=== PATIENT | female | born 1955 | race Caucasian/White ===

== ENCOUNTER 2021-02-06 22:41 | Emergency (ER) | payer OTHER ==
[~2021-02-06] VITALS: Ht 160 cm; Wt 64.4 kg
[2021-02-06 22:41] VITALS: BP_SYST 128
[2021-02-06] MEDS ORDERED: ONDANSETRON 4 MG ODT TAB PO ONE (22:45)
[2021-02-06] MEDS ORDERED: fentaNYL CITRATE/PF 100 MCG/2 ML AMP IM ONE (22:45)
[2021-02-06] MEDS ORDERED: HYDROcodone/ACETAMIN 10-325 MG TAB ONE (23:55)
[2021-02-07] MEDS ORDERED: HYDROcodone/ACETAMIN 10-325 MG TAB PO ONE
--- NOTE | 2021-02-07 00:11 | NUR ---
PARAMEDICS STABALIZED ANKLE WITH SPLINT. RIGHT ANKLE ELEVATED ON PILLOW TO HELP WITH PAIN CONTROL
--- NOTE | 2021-02-07 00:11 | NUR ---
PT BIB AMBULANCE AFTER ROLLING HER RIGHT ANKLE AT HOME. UNABLE TO STAND ON FOOT OR PUT ANY PRESSURE DUE TO INSENSE PAIN. PT ABLE TO MOVE TOES, PALPABLE PEDAL PULSE. NO DEFORMITY NOTED. NOTICABLE SWELLING TO ANKLE. PT PLACED ON GURNEY, V/S TAKEN. BED IN LOWEST POSITION, LOCKED, AND SIDERAIL UP FOR SAFETY
[2021-02-07] MEDS ORDERED: IBUP-1969 PO (02:21)
--- NOTE | 2021-02-07 02:52 | NUR ---
Lilo jain in EDM - 02/07/21 at 0332 by [email or web address] SPLINT PLACED TO RIGHT ANKLE BY . PT STILL HAVING PAIN, 10/15, MD GEORGE AWARE NO NEW ORDERS
[2021-02-07] MEDS ORDERED: MORPHINE 4 MG INJ. 4 MG/ML VIAL ONE (03:29)
[2021-02-07] MEDS ORDERED: MORPHINE 4 MG INJ. 4 MG/ML VIAL IM ONE (03:30)
--- NOTE | 2021-02-07 03:32 | NUR ---
STILL WAITING TO HAVE SPLINT PLACED TO RIGHT ANKLE. MD ORDERED MORE PAIN MEDS.
--- NOTE | 2021-02-07 04:38 | NUR ---
SPLINT PLACED BY MD TO RIGHT ANKLE, CRUTCH TRAINING FOR PATIRNT, RETURN DEMONSTRATION GIVEN, ALL QUESTIONS ANSWERED
--- NOTE | 2021-02-07 04:39 | NUR ---
Patient given written and verbal discharge instructions and verbalizes understanding. ER MD discussed with patient the results and treatment provided. Patient in stable condition. ID arm band removed. Rx of MOTIRIN given. Patient educated on pain management and to follow up with PMD. Pain Scale 5. Opportunity for questions provided and answered. Medication side effect fact sheet provided.
[2021-02-07 04:41] VITALS: BP_SYST 128
== END 2021-02-07 04:41 | disposition home or self-care (01) ==
LOC: SED 22:41
DX: S82.831A Other fracture of upper and lower end of right fibula, initial encounter for closed fracture (principal); S82.301A Unspecified fracture of lower end of right tibia, initial encounter for closed fracture; S92.301A Fracture of unspecified metatarsal bone(s), right foot, initial encounter for closed fracture; I10 Essential (primary) hypertension; E11.9 Type 2 diabetes mellitus without complications; W18.39XA Other fall on same level, initial encounter; Y93.89 Activity, other specified; Y92.89 Other specified places as the place of occurrence of the external cause; Y99.8 Other external cause status
CPT/HCPCS: 29515; 73600; 73630; 96372 ×2; 99284; J2270; J3010; Q0162